=== PATIENT | female | born 1990 | race Caucasian/White ===

== ENCOUNTER 2025-02-15 15:13 | Inpatient (IN) ==
[2025-02-15 16:15] LABS: Hematocrit (blood only) 30.5 % (37.0-47.0); Hemoglobin 10.6 g/dl (12.0-16.0); Immature Granulocytes # (auto) 0.07 K/uL (0.01-0.20); Immature Granulocytes % (auto) 0.5 %; Mean Corpuscular Hemoglobin 29.2 pg (25.0-34.0); Mean Corpuscular Volume 84.0 fL (80.0-100.0); Platelet Count 288 K/uL (130-400); RDW Standard Deviation 41.5 fL (36.4-46.3); Red Blood Count 3.63 M/uL (4.20-5.40); White Blood Count 13.46 K/ul (4.8-10.8)
[2025-02-15 16:29] LABS: Alanine Aminotransferase 5.0 U/L (7-52); Albumin Globulin Ratio 1.1 (0.9-2); Alkaline Phosphatase 137.0 U/L (34-104); Anion Gap 9.0 (3-11); Bilirubin,Total 0.3 mg/dl (0.2-1.0); Blood Urea Nitrogen 5.0 mg/dl (6-23); Calcium 8.9 mg/dl (8.6-10.3); Carbon Dioxide 22.0 mmol/L (21-32); Chloride 105.0 mmol/L (98-107); Creatinine Clr Calc Pharmacy 135.6 ml/min; Globulin 3.0 gm/dl (2.5-4.0); Glucose 92.0 mg/dl (70-99(Fasting)); Potassium 2.8 mmol/L (3.5-5.1); Sodium 136.0 mmol/L (136-145); Total Protein 6.3 gm/dl (6.0-8.3)
[2025-02-15] MEDS ORDERED: OXYTOCIN 30 UNITS/NSS 30 UNITS/500 ML BAG IV PRN (16:34)
[2025-02-15] MEDS ORDERED: LIDOCAINE 1% LOCAL 20 ML VIAL INFIL PRN (16:34)
--- NOTE | 2025-02-15 16:45 | History & Physical Report ---
Date of Service February 15, 2025 Assessment & Plan (1) 36 weeks gestation of : (2) Preeclampsia: Plan PO Nifedipine 10mg for medical management of high blood pressures Start IV magnesium Insert valentine catheter Valentine bulb as indicated, otherwise Cytotec administration as indicated Pitocin (hold if starting Cyotec) GBS status unknown - start IV Penicillin Arom when indicated Continue to monitor vitals Monitor tracing, category 1 History of Present Illness Chief Complaint: Elevated blood pressures Primary Care Provider: NO PCP 36 weeks confirmed via LMP. Here for elevated blood pressures. Complications with this include GDM (managed by diet) and gestational HTN. Has been attending OB appointments regularly. Currently taking Zoloft, but no other medications. Patient states she had mild throbbing headache around 10am this morning which was relieved with Tylenol. Denies leg swelling, changes in vision, RUQ pain, CP, palpitations, fevers/chills, wheezing, cough, SOB, urinary symptoms. Contractions: none. Fluid or Blood loss: none Movement: active Labs - Blood type: O+ - Antibody screen: unknown - H.6 (02/15/25) - Hct: 30.5 (02/15/25) - Wbc: 13.46 (02/15/25) - Plt: 288 (02/15/25) - Rubella: immune - VDRL/RPR: pending - Gonorrhea: negative - Chlamydia: negative - HIV: negative - HbSAg: negative - GBS: pending - 3 hr GTT [phone] - abnormal - Rh negative Allergies Allergy/AdvReac Type Severity Reaction Status Date / Time No Known Allergies Allergy Verified 02/15/25 16:18 Home Medications Medication Instructions Recorded Confirmed Type sertraline [Zoloft] 50 mg PO DAILY 01/29/25 02/15/25 History ferrous sulfate 325 mg (65 mg 325 mg PO DAILY 02/15/25 02/15/25 History iron) tablet (Iron (ferrous sulfate)) vits no.124-ferrous fum 1 tab PO DAILY 02/15/25 02/15/25 History 27 mg iron-folic acid 800 mcg tablet ( Vitamin) Patient History Medical History Human papilloma virus Varicella vaccination Bipolar disorder Surgical History S/P wisdom tooth extraction S/P loop electrosurgical excision procedure Family History Grandmother (Maternal) Breast cancer Grandmother (Paternal) Breast cancer Brain cancer Mother Bipolar disorder Skin cancer Osteoporosis Denies family history of Ovarian cancer Colorectal cancer Social History Smoking Status: Never smoker Do You Dip or Chew Tobacco: No; Hx Alcohol Use: No Hx Substance Use: No Preferred Language: Lao Communication Ability: Effective 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 Date GA wks Lbr Lgth wt Sex Type del Anes Place Del Prov ? Comment 02/26/24 Aborted-Spontaneous [employer] History Last menstrual period: Yes Menstrual reliability: definite Flow: normal Menstrual regularity: regular Monthly: Yes Age at menarche: 13 On control pills at conception: Yes Menstrual history comments: cycles 28-30 days Details: last pap 03/2024 Review of Systems All systems reviewed & are unremarkable except as noted in HPI & below Physical Exam Constitutional: WD/WN, vitals as above Respiratory: normal respiratory effort, lungs clear to auscultation Cardiovascular: RRR, no murmur, no edema no LE edema bilaterally, negative Diamond sign bilaterally Gastrointestinal (Abdomen): normal bowel sounds, soft, nontender, no hepatosplenomegaly +gravid Skin: no rashes, warm and dry Psychiatric: A+Ox3, euthymic affect Genitourinary: difficult, probably closed, 50%, very posterior Results & Data Vital Signs (Past 12 Hours) Vital Signs Temp Pulse Resp BP 02/15/25 16:15 88 02/15/25 16:15 168/108 H 02/15/25 15:58 94 H 02/15/25 15:58 159/105 H 02/15/25 15:56 36.9 C 20 02/15/25 15:38 103 H 144/98 H 02/15/25 15:32 102 H 163/99 H Laboratory Results OB Labs: Hgb 10.6 g/dl (12.0-16.0) L 02/12/25 Hct 31.6 % (37.0-47.0) L 02/12/25 MCV 86.1 fL (80.0-100.0) 02/12/25 Plt Count 304 K/uL (130-400) 02/12/25 OB Optional Labs: No Data to Display Labs Reviewed: Initial OB Labs 08/25/24 Blood Type & RH Antibody Screen HCT/HGB 40.3/13.6 Platelets 298 Hep C IgG 13yrs+ Old non reactive Pap Test Chlamydia not detected Gonorrhea not detected Rubella immune RPR non reactive Urine Culture/Screen >100,000 mixed timothy HBsAg non reactive HIV non reactive MCV 91.7 Ultrasound 24-28 Week OB Labs 01/03/25 HCT/HGB 34.1/11.3 Diabetes Screen (1hr) 3HR GTT (if screen abnormal) [id number] Antibody Screen Urine Culture/Screen Monitoring External Monitor HR: 140 Variability: moderate Accelerations: present Decelerations: absent Contractions: absent Category 1 tracing Supervising Physician Co-Signing Physician Notes Resident Physician Supervision Note: I interviewed and examined the patient. Discussed with Dr. Shearer and agree with findings and plan as documented in the note. Any exceptions or clarifications are listed here: Patient is a [id number] who presents from the office with an elevated blood pressure. no s/s of pet Patient has been treated as GHTN in her previous practice. She was a NOEL at 34 weeks. Today, blood pressure 154/112. Had a 164/112 at her initial visit with repeat of 132/94. Subsequent visit was 138/88. She has no symptoms. Had severe blood pressures here requiring nifedipine. Therefore, she fulfills criteria for pet with severe features of blood pressures. Her labs are all nor mal. Her exam is benign. She was started on Mag prophylaxis. Her cervix is very unfavorable and difficult to examine. I was unable to place a valentine and she actually tolerated exam fairly poorly. Therefore, will go with cytotec for cervical ripening. fetus reactive nst, category one. toco, rare. ultrasound confirms cephalic presentation. Anticipate . Explained the situation to patient and her partner who express understanding. Documented By: Kathie Torres MD, FACOG Resident Activity Tracking Resident Involvement: Resident Care Provided Care Provided: OB Delivery
[2025-02-15] MEDS: NIFEdipine 10 MG CAP PO STA (16:46)
[2025-02-15 16:54] LABS: Protein Creatinine Ratio Urine 0.5 (0-0.2); Total Protein Urine Random 25.1 mg/dl (0-11.9)
[2025-02-15] MEDS: MAGNESIUM SULFATE / WTR 40 GM/1,000 ML BAG IV SCH (16:54)
[2025-02-15] MEDS: MAG SULFATE 4GM BOLUS FROM BAG IV ONE (16:54)
[2025-02-15] MEDS: LACTATED RINGER'S 1,000 ML IV PRN (16:54)
[2025-02-15] MEDS: PENICILLIN GK 6 MU in DEXTROSE 5% 250 ML IV STA (17:15)
[2025-02-15] MEDS ORDERED: ACETAMINOPHEN 500 MG TAB PO ONE (18:43)
[2025-02-15] MEDS: ACETAMINOPHEN 500 MG TAB PO ONE (19:12)
[2025-02-15] MEDS: LABETALOL HCL IV 5 MG/ML 20ML IV STA ×2 (19:14→23:27)
--- NOTE | 2025-02-15 19:37 | Communication Note ---
Date of Service: February 15, 2025 Patient developed a CHADWICK and her pressures went up again. Was given 1000mg tylenol and was treated with labetolol. INitially did not look like it was effe ctive, but now looking better 140/80. Will continue to monitor closely.
[2025-02-15] MEDS: PENICILLIN GK 3 MU in DEXTROSE 5% 100 ML IV PRN (20:39)
[2025-02-16] MEDS: LABETALOL HCL IV 5 MG/ML 20ML IV ONE (01:25)
[2025-02-16] MEDS: LABETALOL HCL IV 5 MG/ML 20ML IV STA ×3 (01:28→18:31)
--- NOTE | 2025-02-16 02:18 | Labor Progress Brief Note ---
Date of Service February 16, 2025 Subjective Patient resting comfortably. stanley has resolved. Assessment & Plan (1) Preeclampsia: (2) 36 weeks gestation of : Plan Will place another cytotec. Still occasionally needing blood pressure treatment. fetus category one. Admission and Anticipated Discharge Date Admission Date: February 15, 2025 Physical Exam Physical Exam: cx--still a challenging exam--ft/50/-2/less post toco--mary jane efm--130s with mod variability, small accels, no decels Results & Data Vital Signs (Past 12 Hours) Vital Signs Temp Pulse Resp BP Pulse Ox O2 Del Method 02/16/25 02:13 83 100 02/16/25 02:08 81 100 02/16/25 02:03 78 98 02/16/25 01:58 92 H 99 02/16/25 01:53 73 97 02/16/25 01:52 74 109/69 02/16/25 01:48 74 96 02/16/25 01:47 76 114/73 02/16/25 01:44 75 107/66 02/16/25 01:43 76 98 02/16/25 01:38 78 96 02/16/25 01:33 84 100 02/16/25 01:28 81 100 02/16/25 01:23 85 100 02/16/25 01:18 87 176/108 H 99 02/16/25 01:13 83 99 02/16/25 01:08 83 99 02/16/25 01:03 82 98 02/16/25 01:02 79 150/105 H 02/16/25 00:58 79 99 02/16/25 00:53 88 99 02/16/25 00:48 81 99 02/16/25 00:47 81 148/98 H 02/16/25 00:45 18 02/16/25 00:43 83 98 02/16/25 00:38 81 97 02/16/25 00:33 80 99 02/16/25 00:32 78 144/91 H 02/16/25 00:28 82 98 02/16/25 00:23 80 97 02/16/25 00:18 81 141/91 H 02/16/25 00:18 81 141/91 H 02/16/25 00:18 81 99 02/16/25 00:17 79 141/91 H 02/16/25 00:13 83 98 02/16/25 00:11 18 02/16/25 00:08 79 97 02/16/25 00:03 80 99 02/15/25 23:59 81 02/15/25 23:59 152/97 H 02/15/25 23:58 96 02/15/25 23:58 81 02/15/25 23:54 80 02/15/25 23:54 130/81 02/15/25 23:53 95 02/15/25 23:53 84 02/15/25 23:49 94 02/15/25 23:49 87 02/15/25 23:49 130/84 02/15/25 23:48 96 02/15/25 23:48 82 02/15/25 23:44 80 02/15/25 23:44 142/89 H 02/15/25 23:43 97 02/15/25 23:43 86 02/15/25 23:39 78 02/15/25 23:39 138/86 02/15/25 23:38 97 02/15/25 23:38 81 02/15/25 23:34 80 02/15/25 23:34 143/87 H 02/15/25 23:33 98 02/15/25 23:33 82 02/15/25 23:28 98 02/15/25 23:28 85 02/15/25 23:25 88 02/15/25 23:25 167/102 H 02/15/25 23:23 99 02/15/25 23:23 90 02/15/25 23:21 86 02/15/25 23:21 173/99 H 02/15/25 23:18 99 02/15/25 23:18 83 02/15/25 23:13 98 02/15/25 23:13 85 02/15/25 23:08 99 02/15/25 23:08 92 H 02/15/25 23:06 85 02/15/25 23:06 151/92 H 02/15/25 23:03 98 02/15/25 23:03 95 H 02/15/25 22:58 98 02/15/25 22:58 88 02/15/25 22:53 99 02/15/25 22:53 87 02/15/25 22:52 82 02/15/25 22:52 159/92 H 02/15/25 22:48 100 02/15/25 22:48 80 02/15/25 22:45 18 02/15/25 22:45 18 02/15/25 22:45 36.7 C 18 02/15/25 22:43 100 02/15/25 22:43 90 02/15/25 22:38 100 02/15/25 22:38 88 02/15/25 22:35 84 02/15/25 22:35 153/96 H 02/15/25 22:33 100 02/15/25 22:33 89 02/15/25 22:28 100 02/15/25 22:28 84 02/15/25 22:23 99 02/15/25 22:23 92 H 02/15/25 22:20 86 02/15/25 22:20 145/93 H 02/15/25 22:18 98 02/15/25 22:18 88 02/15/25 22:13 99 02/15/25 22:13 85 02/15/25 22:08 100 02/15/25 22:08 94 H 02/15/25 22:05 86 02/15/25 22:05 147/95 H 02/15/25 22:03 98 02/15/25 22:03 89 02/15/25 22:00 18 02/15/25 22:00 18 02/15/25 21:58 100 02/15/25 21:58 91 H 02/15/25 21:53 100 02/15/25 21:53 95 H 02/15/25 21:51 90 02/15/25 21:51 146/87 H 02/15/25 21:48 98 02/15/25 21:48 88 02/15/25 21:43 98 02/15/25 21:43 92 H 02/15/25 21:38 100 02/15/25 21:38 87 02/15/25 21:36 88 02/15/25 21:36 153/91 H 02/15/25 21:33 99 02/15/25 21:33 92 H 02/15/25 21:28 99 02/15/25 21:28 90 02/15/25 21:23 99 02/15/25 21:23 87 02/15/25 21:20 85 02/15/25 21:20 134/87 02/15/25 21:18 98 02/15/25 21:18 88 02/15/25 21:13 97 02/15/25 21:13 85 02/15/25 21:08 98 02/15/25 21:08 87 02/15/25 21:06 85 02/15/25 21:06 144/88 H 02/15/25 21:03 97 02/15/25 21:03 85 02/15/25 20:58 98 02/15/25 20:58 88 02/15/25 20:53 97 02/15/25 20:53 90 02/15/25 20:50 89 02/15/25 20:50 135/84 02/15/25 20:48 99 02/15/25 20:48 86 02/15/25 20:45 18 02/15/25 20:45 36.8 C 18 02/15/25 20:43 100 02/15/25 20:43 83 02/15/25 20:38 97 02/15/25 20:38 87 02/15/25 20:36 91 H 02/15/25 20:36 136/80 02/15/25 20:33 98 02/15/25 20:33 85 02/15/25 20:28 98 02/15/25 20:28 89 02/15/25 20:23 99 02/15/25 20:23 97 H 02/15/25 20:21 88 02/15/25 20:21 130/69 02/15/25 20:18 99 02/15/25 20:18 92 H 02/15/25 20:13 98 02/15/25 20:13 95 H 02/15/25 20:08 98 02/15/25 20:08 85 02/15/25 20:06 87 02/15/25 20:06 140/89 02/15/25 20:03 99 02/15/25 20:03 85 02/15/25 20:00 18 02/15/25 20:00 18 02/15/25 19:58 98 02/15/25 19:58 84 02/15/25 19:53 100 02/15/25 19:53 90 02/15/25 19:48 100 02/15/25 19:48 93 H 02/15/25 19:48 93 H 02/15/25 19:48 145/101 H 02/15/25 19:44 88 02/15/25 19:44 154/103 H 02/15/25 19:43 100 02/15/25 19:43 89 02/15/25 19:38 99 02/15/25 19:38 92 H 02/15/25 19:38 152/89 H 02/15/25 19:33 98 02/15/25 19:33 95 H 02/15/25 19:33 145/81 H 02/15/25 19:29 93 H 02/15/25 19:29 131/75 02/15/25 19:28 100 02/15/25 19:28 94 H 02/15/25 19:23 100 02/15/25 19:23 89 02/15/25 19:23 166/107 H 02/15/25 19:20 86 02/15/25 19:20 154/99 H 02/15/25 19:18 100 02/15/25 19:18 93 H 02/15/25 19:15 Room Air 02/15/25 19:15 18 02/15/25 19:15 36.7 C 18 02/15/25 19:13 100 02/15/25 19:13 100 H 02/15/25 19:08 100 02/15/25 19:08 97 H 02/15/25 19:03 100 02/15/25 19:03 94 H 02/15/25 18:59 93 H 02/15/25 18:59 181/109 H 02/15/25 18:58 100 02/15/25 18:58 91 H 02/15/25 18:53 100 02/15/25 18:53 99 H 02/15/25 18:48 100 02/15/25 18:48 97 H 02/15/25 18:43 100 02/15/25 18:43 102 H 02/15/25 18:43 98 H 02/15/25 18:43 157/106 H 02/15/25 18:38 100 02/15/25 18:38 104 H 02/15/25 18:33 100 02/15/25 18:33 97 H 02/15/25 18:28 100 02/15/25 18:28 109 H 02/15/25 18:28 158/110 H 02/15/25 18:23 99 02/15/25 18:23 107 H 02/15/25 18:18 100 02/15/25 18:18 107 H 02/15/25 18:13 100 02/15/25 18:13 107 H 02/15/25 18:13 151/85 H 02/15/25 18:08 98 02/15/25 18:08 101 H 02/15/25 18:03 99 02/15/25 18:03 103 H 02/15/25 18:00 20 02/15/25 17:58 98 02/15/25 17:58 97 H 02/15/25 17:58 153/92 H 02/15/25 17:53 98 02/15/25 17:53 104 H 02/15/25 17:48 99 02/15/25 17:48 105 H 02/15/25 17:43 109 H 02/15/25 17:43 152/90 H 02/15/25 17:28 126 H 02/15/25 17:28 144/82 H 02/15/25 17:15 115 H 02/15/25 17:15 118/63 02/15/25 16:59 115 H 02/15/25 16:59 174/106 H 02/15/25 16:54 20 02/15/25 16:44 95 H 02/15/25 16:44 187/110 H 02/15/25 16:15 88 02/15/25 16:15 168/108 H 02/15/25 15:58 94 H 02/15/25 15:58 159/105 H 02/15/25 15:56 36.9 C 20 02/15/25 15:38 103 H 144/98 H 02/15/25 15:32 102 H 163/99 H Coding Level of Care Code None Diagnoses Preeclampsia O14.90 36 weeks gestation of Z3A.36
[2025-02-16] MEDS: ACETAMINOPHEN 500 MG TAB PO ONE (06:24)
[2025-02-16] MEDS: ONDANSETRON INJ 2 MG/ML 2 ML VIAL IV ONE ×2 (06:26→19:33)
--- NOTE | 2025-02-16 06:58 | Labor Progress Brief Note ---
Date of Service February 16, 2025 Subjective Patient has been resting overnight. She notes stanley this am and got tylenol and has helped. no other s/s of pet. Blood pressures have been reasonable since 40mg dose. uop was excellent overnight. Assessment & Plan (1) Preeclampsia: (2) 36 weeks gestation of : Plan continue current management. at this point will start pitocin, epidural on demand. Fetus category 2 at times because of variability with mag. Discussed plan with the patient. Admission and Anticipated Discharge Date Admission Date: February 15, 2025 Physical Exam Constitutional: WD/WN, vitals as above Gastrointestinal (Abdomen): soft, gravid, nt, no ruq pain Psychiatric: A+Ox3, euthymic affect Genitourinary: attempt again at valentine without success. cx still difficult but probably /soft/post toco--mary jane efm--120s with min to mod variability, mag effect at this point. Results & Data Vital Signs (Past 12 Hours) Vital Signs Temp Pulse Resp BP Pulse Ox O2 Del Method 02/16/25 06:53 91 H 100 02/16/25 06:48 99 H 100 02/16/25 06:43 87 97 02/16/25 06:38 98 02/16/25 06:38 85 02/16/25 06:38 85 130/88 02/16/25 06:33 84 97 02/16/25 06:28 86 100 02/16/25 06:23 85 99 02/16/25 06:22 85 137/80 02/16/25 06:18 91 H 98 02/16/25 06:13 94 H 100 02/16/25 06:08 90 100 02/16/25 06:07 86 143/79 H 02/16/25 06:03 83 99 02/16/25 05:58 87 98 02/16/25 05:53 84 100 02/16/25 05:52 82 142/95 H 02/16/25 05:48 84 98 02/16/25 05:43 86 100 02/16/25 05:38 82 99 02/16/25 05:37 85 148/98 H 02/16/25 05:33 81 98 02/16/25 05:28 85 98 02/16/25 05:23 84 145/85 H 100 02/16/25 05:18 82 100 02/16/25 05:13 82 100 02/16/25 05:08 81 99 02/16/25 05:07 81 152/94 H 02/16/25 05:03 80 100 02/16/25 05:00 18 02/16/25 05:00 18 02/16/25 05:00 36.8 C 18 02/16/25 04:58 80 98 02/16/25 04:53 81 100 02/16/25 04:52 81 146/94 H 02/16/25 04:48 81 98 02/16/25 04:43 77 100 02/16/25 04:40 87 94 02/16/25 04:38 77 97 02/16/25 04:37 78 139/88 02/16/25 04:33 79 96 02/16/25 04:28 82 96 02/16/25 04:23 77 156/87 H 98 02/16/25 04:18 80 99 02/16/25 04:13 79 98 02/16/25 04:08 80 161/89 H 98 02/16/25 04:03 82 100 02/16/25 03:58 85 99 02/16/25 03:53 99 02/16/25 03:53 80 02/16/25 03:53 79 145/86 H 02/16/25 03:49 75 155/93 H 02/16/25 03:48 79 98 02/16/25 03:43 75 96 02/16/25 03:38 83 155/93 H 98 02/16/25 03:33 79 100 02/16/25 03:28 79 96 02/16/25 03:23 78 142/82 H 98 02/16/25 03:18 78 97 02/16/25 03:13 78 97 02/16/25 03:08 78 98 02/16/25 03:07 83 129/83 02/16/25 03:03 78 98 02/16/25 02:58 76 98 02/16/25 02:53 79 99 08 02:52 76 138/84 02/16/25 02:48 82 99 02/16/25 02:43 84 99 02/16/25 02:38 78 99 02/16/25 02:37 76 129/82 02/16/25 02:33 80 99 02/16/25 02:30 18 02/16/25 02:30 18 02/16/25 02:30 36.7 C 18 02/16/25 02:28 87 99 02/16/25 02:25 81 135/82 02/16/25 02:23 81 100 02/16/25 02:18 80 100 02/16/25 02:13 83 100 02/16/25 02:08 81 100 02/16/25 02:03 78 98 02/16/25 01:58 92 H 99 02/16/25 01:53 73 97 02/16/25 01:52 74 109/69 02/16/25 01:48 74 96 02/16/25 01:47 76 114/73 02/16/25 01:45 18 02/16/25 01:45 18 02/16/25 01:44 75 107/66 02/16/25 01:43 76 98 02/16/25 01:38 78 96 02/16/25 01:33 84 100 02/16/25 01:28 81 100 02/16/25 01:23 85 100 02/16/25 01:18 87 176/108 H 99 02/16/25 01:13 83 99 02/16/25 01:08 83 99 02/16/25 01:03 82 98 02/16/25 01:02 79 150/105 H 02/16/25 00:58 79 99 02/16/25 00:53 88 99 02/16/25 00:48 81 99 02/16/25 00:47 81 148/98 H 02/16/25 00:45 18 02/16/25 00:43 83 98 02/16/25 00:38 81 97 02/16/25 00:33 80 99 02/16/25 00:32 78 144/91 H 02/16/25 00:28 82 98 02/16/25 00:23 80 97 02/16/25 00:18 81 141/91 H 02/16/25 00:18 81 141/91 H 02/16/25 00:18 81 99 02/16/25 00:17 79 141/91 H 02/16/25 00:13 83 98 02/16/25 00:11 18 02/16/25 00:08 79 97 02/16/25 00:03 80 99 02/15/25 23:59 81 02/15/25 23:59 152/97 H 02/15/25 23:58 96 02/15/25 23:58 81 02/15/25 23:54 80 02/15/25 23:54 130/81 02/15/25 23:53 95 02/15/25 23:53 84 02/15/25 23:49 94 02/15/25 23:49 87 02/15/25 23:49 130/84 02/15/25 23:48 96 02/15/25 23:48 82 02/15/25 23:44 80 02/15/25 23:44 142/89 H 02/15/25 23:43 97 02/15/25 23:43 86 02/15/25 23:39 78 02/15/25 23:39 138/86 02/15/25 23:38 97 02/15/25 23:38 81 02/15/25 23:34 80 02/15/25 23:34 143/87 H 02/15/25 23:33 98 02/15/25 23:33 82 02/15/25 23:28 98 02/15/25 23:28 85 02/15/25 23:25 88 02/15/25 23:25 167/102 H 02/15/25 23:23 99 02/15/25 23:23 90 02/15/25 23:21 86 02/15/25 23:21 173/99 H 02/15/25 23:18 99 02/15/25 23:18 83 02/15/25 23:13 98 02/15/25 23:13 85 02/15/25 23:08 99 02/15/25 23:08 92 H 02/15/25 23:06 85 02/15/25 23:06 151/92 H 02/15/25 23:03 98 02/15/25 23:03 95 H 02/15/25 22:58 98 02/15/25 22:58 88 02/15/25 22:53 99 02/15/25 22:53 87 02/15/25 22:52 82 02/15/25 22:52 159/92 H 02/15/25 22:48 100 02/15/25 22:48 80 02/15/25 22:45 18 02/15/25 22:45 18 02/15/25 22:45 36.7 C 18 02/15/25 22:43 100 02/15/25 22:43 90 02/15/25 22:38 100 02/15/25 22:38 88 02/15/25 22:35 84 02/15/25 22:35 153/96 H 02/15/25 22:33 100 02/15/25 22:33 89 02/15/25 22:28 100 02/15/25 22:28 84 02/15/25 22:23 99 02/15/25 22:23 92 H 02/15/25 22:20 86 02/15/25 22:20 145/93 H 02/15/25 22:18 98 02/15/25 22:18 88 02/15/25 22:13 99 02/15/25 22:13 85 02/15/25 22:08 100 02/15/25 22:08 94 H 02/15/25 22:05 86 02/15/25 22:05 147/95 H 02/15/25 22:03 98 02/15/25 22:03 89 02/15/25 22:00 18 02/15/25 22:00 18 02/15/25 21:58 100 02/15/25 21:58 91 H 02/15/25 21:53 100 02/15/25 21:53 95 H 02/15/25 21:51 90 02/15/25 21:51 146/87 H 02/15/25 21:48 98 02/15/25 21:48 88 02/15/25 21:43 98 02/15/25 21:43 92 H 02/15/25 21:38 100 02/15/25 21:38 87 02/15/25 21:36 88 02/15/25 21:36 153/91 H 02/15/25 21:33 99 02/15/25 21:33 92 H 02/15/25 21:28 99 02/15/25 21:28 90 02/15/25 21:23 99 02/15/25 21:23 87 02/15/25 21:20 85 02/15/25 21:20 134/87 02/15/25 21:18 98 02/15/25 21:18 88 02/15/25 21:13 97 02/15/25 21:13 85 02/15/25 21:08 98 02/15/25 21:08 87 02/15/25 21:06 85 02/15/25 21:06 144/88 H 02/15/25 21:03 97 02/15/25 21:03 85 02/15/25 20:58 98 02/15/25 20:58 88 02/15/25 20:53 97 02/15/25 20:53 90 02/15/25 20:50 89 02/15/25 20:50 135/84 02/15/25 20:48 99 02/15/25 20:48 86 02/15/25 20:45 18 02/15/25 20:45 36.8 C 18 02/15/25 20:43 100 02/15/25 20:43 83 02/15/25 20:38 97 02/15/25 20:38 87 02/15/25 20:36 91 H 02/15/25 20:36 136/80 02/15/25 20:33 98 02/15/25 20:33 85 02/15/25 20:28 98 02/15/25 20:28 89 02/15/25 20:23 99 02/15/25 20:23 97 H 02/15/25 20:21 88 02/15/25 20:21 130/69 02/15/25 20:18 99 02/15/25 20:18 92 H 02/15/25 20:13 98 02/15/25 20:13 95 H 02/15/25 20:08 98 02/15/25 20:08 85 02/15/25 20:06 87 02/15/25 20:06 140/89 02/15/25 20:03 99 02/15/25 20:03 85 02/15/25 20:00 18 02/15/25 20:00 18 02/15/25 19:58 98 02/15/25 19:58 84 02/15/25 19:53 100 02/15/25 19:53 90 02/15/25 19:48 100 02/15/25 19:48 93 H 02/15/25 19:48 93 H 02/15/25 19:48 145/101 H 02/15/25 19:44 88 02/15/25 19:44 154/103 H 02/15/25 19:43 100 02/15/25 19:43 89 02/15/25 19:38 99 02/15/25 19:38 92 H 02/15/25 19:38 152/89 H 02/15/25 19:33 98 02/15/25 19:33 95 H 02/15/25 19:33 145/81 H 02/15/25 19:29 93 H 02/15/25 19:29 131/75 02/15/25 19:28 100 02/15/25 19:28 94 H 02/15/25 19:23 100 02/15/25 19:23 89 02/15/25 19:23 166/107 H 02/15/25 19:20 86 02/15/25 19:20 154/99 H 02/15/25 19:18 100 02/15/25 19:18 93 H 02/15/25 19:15 Room Air 02/15/25 19:15 18 02/15/25 19:15 36.7 C 18 02/15/25 19:13 100 02/15/25 19:13 100 H 02/15/25 19:08 100 02/15/25 19:08 97 H 02/15/25 19:03 100 02/15/25 19:03 94 H 02/15/25 18:59 93 H 02/15/25 18:59 181/109 H 02/15/25 18:58 100 02/15/25 18:58 91 H Coding Level of Care Code None Diagnoses Preeclampsia O14.90 36 weeks gestation of Z3A.36
[2025-02-16] MEDS: OXYTOCIN 30 UNITS/NSS 30 UNITS/500 ML BAG IV PRN (08:00)
[2025-02-16] MEDS ORDERED: LIDOCAINE 2% MPF LOCAL 5 ML VIAL EPI PRN (12:21)
[2025-02-16] MEDS ORDERED: SODIUM CHLORIDE 0.9% PF INJ 10 ML VIAL EPI PRN (12:21)
[2025-02-16] MEDS ORDERED: BUPIVACAINE 0.25% PF 30 ML VIAL EPI PRN (12:21)
[2025-02-16] MEDS ORDERED: NALBUPHINE HCL INJ 10 MG/ML AMP IV PRN (12:21)
[2025-02-16] MEDS ORDERED: NALOXONE HCL 1 MG in SODIUM CHLORIDE 0.9% 1,000 ML IV PRN (12:21)
[2025-02-16] MEDS ORDERED: diphenhydrAMINE 50 MG/ML VIAL IV PRN (12:21)
[2025-02-16] MEDS ORDERED: NALOXONE HCL 0.4 MG/1 ML VIAL/CARP IV PRN (12:21)
[2025-02-16] MEDS ORDERED: ROPIVACAINE 0.5% PF 5 MG/ML 20 ML VIAL EPI PRN (12:21)
--- NOTE | 2025-02-16 12:21 | Anesthesiology Consultation ---
Date of Service February 16, 2025 Assessment & Plan Chart Review Chart Review: Acceptable Risk for Labor Epidural Consults Requested none History Height/Weight Height: 5 ft 4 in Weight: 81.647 kg Allergies Allergy/AdvReac Type Severity Reaction Status Date / Time No Known Allergies Allergy Verified 02/15/25 16:18 Medications Home Medications Medication Instructions Recorded Confirmed Last Taken sertraline [Zoloft] 50 mg PO DAILY 01/29/25 02/15/25 02/15/25 08:00 ferrous sulfate 325 mg (65 mg 325 mg PO DAILY 02/15/25 02/15/25 Unknown iron) tablet (Iron (ferrous sulfate)) vits no.124-ferrous fum 1 tab PO DAILY 02/15/25 02/15/25 02/14/25 20:00 27 mg iron-folic acid 800 mcg tablet ( Vitamin) Active Medications Generic Name Dose Route Start Last Admin Trade Name Freq PRN Reason Stop Dose Admin Lactated Ringer's 1,000 mls @ 125 mls/hr 02/15/25 16:34 02/16/25 12:06 Lr IV 02/17/25 16:33 999 mls/hr .Q8H PRN Infusion L&D Protocol Protocol Penicillin G Potassium 3 mu/ 106 mls @ 100 mls/hr 02/15/25 19:34 02/16/25 09:20 Dextrose IV 02/25/25 19:33 100 mls/hr Q4H PRN Administration GBS(+) Until Delivery Oxytocin 30 units in 500 mls @ 0 mls/hr 02/15/25 16:34 02/16/25 12:05 Pitocin 30 Units/Nss IV 02/17/25 16:33 0 units/hr .Q0M PRN 0 mls/hr Labor Induction/Augmentation Titration Protocol 0 UNITS/HR Magnesium Sulfate 40 gm in 1,000 mls @ 50 mls/hr 02/15/25 16:45 02/16/25 09:59 Magnesium Sulfate / Wtr IV 03/17/25 16:44 50 mls/hr .Q20H JEFFY Infusion Past Medical History Medical History Human papilloma virus Varicella vaccination Bipolar disorder Past Family History Family History Grandmother (Maternal) Breast cancer Grandmother (Paternal) Breast cancer Brain cancer Mother Bipolar disorder Skin cancer Osteoporosis Denies family history of Ovarian cancer Colorectal cancer Past Surgical History Surgical History S/P wisdom tooth extraction S/P loop electrosurgical excision procedure Social History Smoking Status: Never smoker Do You Dip or Chew Tobacco: No Hx Alcohol Use: No Hx Substance Use: No Physical Exam Vital Signs Last Vital Signs Temp 37.0 C 02/16/25 11:16 Pulse 83 02/16/25 12:18 Resp 18 02/16/25 11:16 BP 170/93 H 02/16/25 12:15 Pulse Ox 100 02/16/25 12:18 O2 Del Method Room Air 02/16/25 07:10 Testing Laboratory Results 02/15/25 15:46 02/15/25 15:46 Blood Type O Positive 02/15/25 15:57 02/16/25 00:48 POC Glucose 92
[2025-02-16 13:05] LABS: Hematocrit (blood only) 32.2 % (37.0-47.0); Hemoglobin 11.1 g/dl (12.0-16.0); Mean Corpuscular Hemoglobin 29.4 pg (25.0-34.0); Mean Corpuscular Volume 85.2 fL (80.0-100.0); Platelet Count 296 K/uL (130-400); RDW Standard Deviation 42.1 fL (36.4-46.3); Red Blood Count 3.78 M/uL (4.20-5.40); White Blood Count 17.36 K/ul (4.8-10.8)
[2025-02-16] MEDS: fentANYL 2 MCG/ML BUPIVacaine 0.125%-NSS 100ML BAG ONE (13:30)
[2025-02-16] MEDS: BUPIVACAINE 0.25% PF 30 ML VIAL ONE (13:37)
[2025-02-16] MEDS: SODIUM CHLORIDE 0.9% PF INJ 10 ML VIAL ONE (13:38)
[2025-02-16] MEDS: LIDOCAINE 2%/EPINEPHRINE 1:200,000 20 ML PF ONE (13:38)
[2025-02-16] MEDS: SODIUM CHLORIDE 0.9% PF INJ 10 ML VIAL EPI STA (13:39)
[2025-02-16] MEDS: BUPIVACAINE 0.25% PF 30 ML VIAL EPI STA (13:39)
[2025-02-16] MEDS: LIDOCAINE 2%/EPINEPHRINE 1:200,000 20 ML PF EPI STA (13:39)
[2025-02-16] MEDS ORDERED: PHENYLEPHRINE 100MCG/ML 5ML SYR ONE (14:15)
[2025-02-16] MEDS ORDERED: PHENYLEPHRINE HCL 25 MG/250 ML NSS IV ONE (14:16)
--- NOTE | 2025-02-16 15:18 | Labor Progress Brief Note ---
Date of Service February 16, 2025 Subjective Comfortable with epidural. Of note, as soon as epidural took effect, BP dropped to low-normal. Has now stabilized with management via Dr. Carrion, 114/66, P85, asymptomatic. Assessment & Plan Admission and Anticipated Discharge Date Admission Date: February 15, 2025 Physical Exam Genitourinary: Rogel catheter in bladder since last night. Slight hematuria noted in tubing, has been present since placement per RN. Patient verbally re-consented for Rogel placement and was agreeable. Cervix 2cm when attempt to place cervical Rogel balloon began. Rogel placed above iOs, then insufflated, but promptly extruded back through the cervix which was then 3cm. A second attempt was made to place balloon, but as soon as the balloon was seated downwards against the cervix it passed easily through again. Exam afterwards was 475/-2, and SROM occurred for clear fluid at that time. FHT Cat 1 [place] Q2-3 Results & Data Vital Signs (Past 12 Hours) Vital Signs Temp Pulse Resp BP Pulse Ox O2 Del Method 02/16/25 15:08 85 98 02/16/25 15:03 83 98 02/16/25 15:02 82 114/66 02/16/25 14:58 82 96 02/16/25 14:57 81 115/66 02/16/25 14:53 73 96 02/16/25 14:52 76 119/66 02/16/25 14:51 72 93 02/16/25 14:48 73 96 02/16/25 14:47 75 108/64 02/16/25 14:43 94 02/16/25 14:43 76 02/16/25 14:43 85 93 02/16/25 14:42 80 103/56 L 02/16/25 14:38 78 95 02/16/25 14:36 16 02/16/25 14:36 97.9 F 16 02/16/25 14:36 70 02/16/25 14:36 71 106/59 L 93 02/16/25 14:33 76 89/51 L 97 02/16/25 14:28 75 96 02/16/25 14:27 78 108/64 02/16/25 14:23 79 95 02/16/25 14:22 80 102/61 02/16/25 14:18 83 96 02/16/25 14:16 76 93 02/16/25 14:15 77 106/61 02/16/25 14:14 71 106/55 L 02/16/25 14:13 74 97 02/16/25 14:12 75 111/60 02/16/25 14:11 78 94 02/16/25 14:09 73 89/50 L 02/16/25 14:08 77 95 02/16/25 14:07 77 100/57 L 02/16/25 14:05 79 02/16/25 14:05 81 104/59 L 94 02/16/25 14:03 81 97/57 L 97 02/16/25 14:01 80 108/65 02/16/25 14:00 18 02/16/25 14:00 83 127/71 02/16/25 13:58 64 97 02/16/25 13:55 76 87/55 L 02/16/25 13:53 79 89/50 L 98 02/16/25 13:51 78 91/55 L 02/16/25 13:49 75 93/57 L 02/16/25 13:48 79 98 02/16/25 13:47 76 89/53 L 02/16/25 13:45 75 94/57 L 02/16/25 13:43 97 02/16/25 13:43 72 02/16/25 13:43 76 101/58 L 02/16/25 13:41 72 75/45 L 02/16/25 13:40 78 79/50 L 02/16/25 13:39 72 02/16/25 13:39 76 77/46 L 94 02/16/25 13:38 95 02/16/25 13:38 74 02/16/25 13:38 75 77/46 L 02/16/25 13:36 78 100/63 02/16/25 13:33 76 103/65 97 02/16/25 13:31 77 108/65 02/16/25 13:30 79 111/73 02/16/25 13:28 80 100 02/16/25 13:23 77 100 02/16/25 13:18 92 H 100 02/16/25 13:15 93 H 155/98 H 02/16/25 13:13 94 H 100 02/16/25 13:08 83 96 02/16/25 13:07 86 149/94 H 02/16/25 13:04 83 94 02/16/25 13:03 85 99 02/16/25 13:00 18 02/16/25 12:58 96 02/16/25 12:58 84 02/16/25 12:58 83 94 02/16/25 12:53 81 97 02/16/25 12:51 85 94 02/16/25 12:48 85 96 02/16/25 12:47 81 166/101 H 02/16/25 12:43 85 99 02/16/25 12:38 82 100 02/16/25 12:33 86 100 02/16/25 12:28 79 100 02/16/25 12:24 88 91 02/16/25 12:23 88 100 02/16/25 12:18 83 100 02/16/25 12:15 86 18 170/93 H 02/16/25 12:13 86 100 02/16/25 12:08 85 100 02/16/25 12:03 82 100 02/16/25 12:00 20 02/16/25 11:58 93 H 100 02/16/25 11:56 78 94 02/16/25 11:53 79 95 02/16/25 11:51 83 94 02/16/25 11:48 78 95 02/16/25 11:46 77 02/16/25 11:46 78 120/70 94 02/16/25 11:43 80 95 02/16/25 11:38 79 95 02/16/25 11:33 83 99 02/16/25 11:30 84 94 02/16/25 11:28 80 97 02/16/25 11:23 76 96 02/16/25 11:21 79 94 02/16/25 11:18 77 96 02/16/25 11:16 98.6 F 75 18 140/83 02/16/25 11:13 82 97 02/16/25 11:08 79 98 02/16/25 11:07 79 123/76 02/16/25 11:03 85 96 02/16/25 11:00 18 02/16/25 10:59 18 02/16/25 10:59 18 02/16/25 10:58 83 97 02/16/25 10:53 85 96 02/16/25 10:51 84 94 02/16/25 10:48 80 97 02/16/25 10:44 76 02/16/25 10:44 79 123/76 94 02/16/25 10:43 80 96 02/16/25 10:38 85 99 02/16/25 10:37 83 164/95 H 02/16/25 10:33 86 99 02/16/25 10:28 83 97 02/16/25 10:26 86 94 02/16/25 10:23 85 96 02/16/25 10:18 83 98 02/16/25 10:16 82 164/95 H 02/16/25 10:13 84 97 02/16/25 10:08 18 02/16/25 10:08 82 99 02/16/25 10:03 90 98 02/16/25 09:59 18 02/16/25 09:59 18 02/16/25 09:58 82 99 02/16/25 09:56 84 159/84 H 02/16/25 09:53 89 100 02/16/25 09:48 98 H 98 02/16/25 09:43 89 100 02/16/25 09:38 87 98 02/16/25 09:33 88 98 02/16/25 09:28 84 99 02/16/25 09:23 86 100 02/16/25 09:18 84 93 02/16/25 09:15 84 124/71 02/16/25 09:13 80 96 02/16/25 09:08 81 95 02/16/25 09:03 81 96 02/16/25 09:00 16 02/16/25 09:00 16 02/16/25 08:58 88 99 02/16/25 08:53 87 96 02/16/25 08:48 83 98 02/16/25 08:45 83 134/84 02/16/25 08:43 86 99 02/16/25 08:40 88 93 02/16/25 08:38 85 96 02/16/25 08:33 81 98 02/16/25 08:28 80 96 02/16/25 08:23 96 02/16/25 08:23 81 08 08:23 81 94 02/16/25 08:18 82 97 02/16/25 08:15 76 158/86 H 02/16/25 08:13 84 96 02/16/25 08:08 86 100 02/16/25 08:03 83 99 02/16/25 08:00 76 20 146/86 H 02/16/25 07:58 86 99 02/16/25 07:53 79 99 02/16/25 07:48 85 97 02/16/25 07:46 84 166/95 H 02/16/25 07:43 84 99 02/16/25 07:38 82 98 02/16/25 07:33 81 96 02/16/25 07:28 85 100 02/16/25 07:23 89 100 02/16/25 07:18 85 100 02/16/25 07:14 84 140/88 02/16/25 07:13 94 H 99 02/16/25 07:10 20 02/16/25 07:10 Room Air 02/16/25 07:08 85 100 02/16/25 07:03 98.4 F 93 H 20 98 02/16/25 06:58 88 97 02/16/25 06:53 91 H 100 02/16/25 06:48 99 H 100 02/16/25 06:43 87 97 02/16/25 06:38 98 02/16/25 06:38 85 02/16/25 06:38 85 130/88 02/16/25 06:33 84 97 02/16/25 06:28 86 100 02/16/25 06:23 85 99 02/16/25 06:22 85 137/80 02/16/25 06:18 91 H 98 02/16/25 06:13 94 H 100 02/16/25 06:08 90 100 02/16/25 06:07 86 143/79 H 02/16/25 06:03 83 99 02/16/25 05:58 87 98 02/16/25 05:53 84 100 02/16/25 05:52 82 142/95 H 02/16/25 05:48 84 98 02/16/25 05:43 86 100 02/16/25 05:38 82 99 02/16/25 05:37 85 148/98 H 02/16/25 05:33 81 98 02/16/25 05:28 85 98 02/16/25 05:23 84 145/85 H 100 02/16/25 05:18 82 100 02/16/25 05:13 82 100 08/26/25 05:08 81 99 02/16/25 05:07 81 152/94 H 02/16/25 05:03 80 100 02/16/25 05:00 18 02/16/25 05:00 18 02/16/25 05:00 98.2 F 18 02/16/25 04:58 80 98 02/16/25 04:53 81 100 02/16/25 04:52 81 146/94 H 02/16/25 04:48 81 98 02/16/25 04:43 77 100 02/16/25 04:40 87 94 02/16/25 04:38 77 97 02/16/25 04:37 78 139/88 02/16/25 04:33 79 96 02/16/25 04:28 82 96 02/16/25 04:23 77 156/87 H 98 02/16/25 04:18 80 99 02/16/25 04:13 79 98 02/16/25 04:08 80 161/89 H 98 02/16/25 04:03 82 100 02/16/25 03:58 85 99 02/16/25 03:53 99 02/16/25 03:53 80 02/16/25 03:53 79 145/86 H 02/16/25 03:49 75 155/93 H 02/16/25 03:48 79 98 02/16/25 03:43 75 96 02/16/25 03:38 83 155/93 H 98 02/16/25 03:33 79 100 02/16/25 03:28 79 96 02/16/25 03:23 78 142/82 H 98 02/16/25 03:18 78 97 Coding Level of Care Code None
--- NOTE | 2025-02-16 15:24 | Communication Note ---
Date of Service: February 16, 2025 called to bedside d/t hypotension subsequent to epidural infusion initiation. pt mildly symptomatic. treated with phenylephrine 100 mcg bolus x4/ephedrine per nursing and IVF. started phenylephrine gtt under my management from 1422- 1455 at 0.2 mcg/kg/min while fluid resuscitation continued. phenylephrine d/c'd and BP remained stable. will continue to monitor.
[2025-02-16] MEDS: ONDANSETRON INJ 2 MG/ML 2 ML VIAL ONE (19:38)
[2025-02-16] MEDS: fentANYL 2 MCG/ML BUPIVacaine 0.125%-NSS 100ML BAG EPI PRN (20:20)
[2025-02-16] MEDS ORDERED: LIDOCAINE 2%/EPINEPHRINE 1:200,000 20 ML PF ONE (21:08)
[2025-02-16] MEDS ORDERED: fentANYL 2 MCG/ML BUPIVacaine 0.125%-NSS 100ML BAG EPI PRN (21:25)
--- NOTE | 2025-02-16 21:25 | Anesthesia Procedure Note ---
Date of Service February 16, 2025 Anesthesia Epidural Re-Dose Vital Signs Temp Pulse Resp BP Pulse Ox O2 Del Method 36.7 C 91 H 18 148/88 H 100 Room Air 02/16/25 19:30 02/16/25 21:21 02/16/25 19:30 02/16/25 21:21 02/16/25 21:19 02/16/25 19:21 Notes Pain Intensity: 7 Dilatation (cm): 5.0 Effacement (%): 75 Called by nursing to evaluate epidural as the patient is having increased pain. The epidural was re-dosed with the following medications (all medications via epidural route) after negative aspiration of the epidural catheter for CSF/HEME. 5cc 2% Lidocaine with epi via epidural After Epidural Re-Dose Mental Status: alert / awake / arousable and participated in evaluation Pain: improving with treatment Airway Patency, RR, SpO2: stable & adequate BP & HR: stable & adequate
--- NOTE | 2025-02-17 01:16 | Delivery Summary ---
Vaginal Delivery Summary Date of Service February 17, 2025 Vaginal Delivery Summary DIAGNOSES: 1. [place] intrauterine at 36w2d gestation. 2. Induction of Labor due to Preeclampsia with Severe Features. 3. Group B Streptococcus Neg. PROCEDURE: Spontaneous vaginal delivery and repair of second degree laceration. SURGEON: Mindy Lei MD. OFFICE CLEANER: None. ESTIMATED BLOOD LOSS: 358 mL. COMPLICATIONS: None. PLACENTA: Spontaneous and intact with a 3-vessel cord. DISPOSITION: Stable to labor and delivery. DESCRIPTION: The patient pushed well and brought the head to in DOA position. The 's head was allowed to deliver with contraction force and no further active pushing, with the perineum protected during this time. There was no nuchal cord. The left shoulder was anterior. The shoulders and body delivered without any difficulty, and the infant was placed on the maternal abdomen. It was vigorous and moving all extremities, and making respiratory efforts. The cord was doubly clamped by the MD and then cut. The placenta delivered spontaneously and was noted to be intact and with a 3VC. The cervix, vagina and perineum were examined and were found to have a second-degree laceration which was repaired in the usual manner with vicryl suture, including a crown stitch to rebuild the perineal body. The fundus was firm and lochia minimal immediately after delivery. [facility] Vaginal Delivery Charge Vaginal Delivery Codes: 58125 global code for the antepartum, delivery, and post-
[2025-02-17] MEDS ORDERED: HYDROCORTISONE ACETATE 25 MG SUPP PR PRN (01:38)
[2025-02-17] MEDS ORDERED: OXYTOCIN 30 UNITS/NSS 30 UNITS/500 ML BAG IV PRN (01:38)
[2025-02-17] MEDS: DIPHTHER/TETAN/PERTUS Vaccine (Tdap, Adol/Adult) 0.5mL IM ONE (01:55)
--- NOTE | 2025-02-17 02:00 | Anesthesia Procedure Note ---
Date of Service February 17, 2025 Anesthesia Post Epidural Note Vital Signs Vital Signs: Temp Pulse Resp BP Pulse Ox O2 Del Method 36.5 C 87 18 140/85 100 Room Air 02/17/25 01:30 02/17/25 01:55 02/17/25 01:30 02/17/25 01:49 02/17/25 01:55 02/16/25 19:21 Pain Intensity Bilateral Head: Pain Intensity: 0 Notes Mental Status: alert / awake / arousable and participated in evaluation Nausea / Vomiting: adequately controlled Pain: adequately controlled Airway Patency, RR, SpO2: stable & adequate BP & HR: stable & adequate Hydration State: stable & adequate Neuraxial Anesthesia: was administered and sensory block is resolving Anesthetic Complications: no major complications apparent and Pt Satisfied with anesthetic care Epidural: Removed without complications and With tip intact
[2025-02-17] MEDS: ACETAMINOPHEN 325 MG TAB PO PRN (03:12)
[2025-02-17] MEDS: IBUPROFEN 600 MG TAB PO PRN (03:13)
[2025-02-17] MEDS: SERTRALINE HCL 50 MG TABLET PO SCH (07:40)
[2025-02-17] MEDS: BENZOCAINE 20% SPRY 85 APPLN/85 GM CAN EXT PRN (07:46)
[2025-02-17] MEDS: PRENATAL VITAMIN 1 TAB PO SCH (07:46)
[2025-02-17] MEDS: DOCUSATE SODIUM 100 MG CAP PO SCH (07:46)
[2025-02-17 08:09] VITALS: RESP 16
--- NOTE | 2025-02-17 11:10 | Communication Note ---
Date of Service: February 17, 2025 visited with pt. she denies stanley or visual change. has not heard from NICU about status of baby. she is eating and bandar well, drinking fluids. valentine in place. discussed course of magnesium for seizure prophylaxis in scenario of severe preeclampsia. she is aware that is planned for 24hr after which we will allow her ambulate and during that course need to see if her bps remain stable or if there becomes need for trt. Therefore unclear after stopping mag when best timeframe to predict that she could [place] [facility] [place] we will need to be sure we are keeping her safe from complications like severe bp, stroke. She verbalized understanding. Empathy expressed for her current condition and separation from her . I spoke to nursery and then the leather goods sales representative here today about seeing if we can get a NICU update on baby to share with her and partner.
[2025-02-17] MEDS: LACTATED RINGER'S 1,000 ML IV SCH (11:15)
[2025-02-17] MEDS: LABETALOL HCL 200 MG TAB PO ONE (14:46)
[2025-02-17] MEDS: ONDANSETRON INJ 2 MG/ML 2 ML VIAL ONE (15:36)
--- NOTE | 2025-02-17 16:12 | Obstetrical Progress Note ---
Date of Service February 17, 2025 Assessment & Plan (1) care following vaginal delivery: (2) Preeclampsia: Plan pt with unfortunate drop in bp to meds to manage bp. this did happen with her iv labetalol and during epidural but was not expecting as dramatic effect with po meds. either way, reassured pt that we are watching her closely. will hold further po meds. will need to be more cautious even with po med selection given this response. curbsided anesth about agent to help support bp if i need but prefer not to use to yo-yo pt bp. if needed with plan ephedrine 50mcg and consider albumin as alt to inc intravascular volume (given preeclampsia leaky vessel disease not sure about its effect but may be worth a try). Admission and Anticipated Discharge Date Admission Date: February 15, 2025 Subjective given elevated bp opted to start labetalol po with first time dose 200mg. called due to pt low bp. she drifted from elevated bp 170s/98, to 90s/50s. given iv fluid bolus, gentle, lungs were clear and urine output was excellent. she was placed in [place]. She had felt stanley and change in hearing and that was improving. Then after time in [place] felt some chest pressure and sob and so taken out of t-angu[place] and now states she is feeling better. BP x 3 now is stable at 90s/50s pulse 75. Physical Exam Constitutional: WD/WN, vitals as above Results & Data Vital Signs (Past 12 Hours) Vital Signs Temp Pulse Pulse Resp BP BP Pulse Ox 02/17/25 16:01 75 93 02/17/25 16:00 75 99/55 L 02/17/25 15:59 75 93 02/17/25 15:56 75 98 02/17/25 15:54 74 94 02/17/25 15:51 76 99 02/17/25 15:46 75 99 02/17/25 15:45 76 98/54 L 02/17/25 15:41 76 98 02/17/25 15:36 79 99 02/17/25 15:32 72 92/55 L 02/17/25 15:31 73 95 02/17/25 15:30 74 94 02/17/25 15:26 76 93 02/17/25 15:24 75 102/54 L 02/17/25 15:21 77 93 02/17/25 15:16 78 100 02/17/25 15:15 16 02/17/25 15:15 16 02/17/25 15:15 79 124/65 02/17/25 15:11 80 99 02/17/25 15:06 82 100 02/17/25 15:01 85 100 02/17/25 14:56 88 100 02/17/25 14:51 94 H 100 02/17/25 14:46 88 100 02/17/25 14:45 88 176/95 H 02/17/25 14:41 95 H 100 02/17/25 14:36 93 H 100 02/17/25 14:31 92 H 100 02/17/25 14:26 88 100 02/17/25 14:22 86 174/91 H 02/17/25 14:21 88 100 02/17/25 14:16 98 H 100 02/17/25 14:15 16 02/17/25 14:15 98.2 F 86 16 100 02/17/25 14:01 86 92 02/17/25 14:00 85 100 02/17/25 13:58 85 168/99 H 02/17/25 13:55 92 H 100 02/17/25 13:50 82 97 02/17/25 13:46 83 94 02/17/25 13:45 80 98 02/17/25 13:40 84 99 02/17/25 13:35 83 100 02/17/25 13:30 83 99 02/17/25 13:25 86 98 02/17/25 13:20 84 98 02/17/25 13:15 16 02/17/25 13:15 16 02/17/25 13:15 86 98 02/17/25 13:10 82 99 02/17/25 13:07 91 H 91 02/17/25 13:05 85 100 02/17/25 13:00 82 100 02/17/25 12:55 85 99 02/17/25 12:50 85 99 02/17/25 12:45 81 99 02/17/25 12:40 87 98 02/17/25 12:35 84 99 02/17/25 12:30 84 100 02/17/25 12:25 87 100 02/17/25 12:22 95 H 91 02/17/25 12:20 83 100 02/17/25 12:15 16 02/17/25 12:15 87 100 02/17/25 12:10 88 97 02/17/25 12:05 95 H 100 02/17/25 12:00 82 100 02/17/25 11:55 91 H 97 02/17/25 11:50 80 98 02/17/25 11:45 81 99 02/17/25 11:40 87 92 02/17/25 11:35 82 98 02/17/25 11:30 82 97 02/17/25 11:25 89 100 02/17/25 11:20 92 H 100 02/17/25 11:15 97.9 F 16 100 02/17/25 11:15 88 100 02/17/25 11:14 96 H 93 02/17/25 11:10 81 100 02/17/25 11:05 82 96 02/17/25 11:00 79 98 02/17/25 10:55 84 98 02/17/25 10:50 90 100 02/17/25 10:45 80 99 02/17/25 10:40 89 100 02/17/25 10:35 82 98 02/17/25 10:30 89 99 02/17/25 10:25 80 98 02/17/25 10:20 84 100 02/17/25 10:15 16 02/17/25 10:15 87 97 02/17/25 10:11 91 H 92 02/17/25 10:10 89 100 02/17/25 10:05 91 H 146/98 H 100 02/17/25 10:00 83 99 02/17/25 09:55 88 100 02/17/25 09:50 83 97 02/17/25 09:45 88 99 02/17/25 09:40 83 98 02/17/25 09:35 88 100 02/17/25 09:33 92 H 84 L 02/17/25 09:30 93 H 100 02/17/25 09:25 89 99 02/17/25 09:20 88 98 02/17/25 09:15 16 02/17/25 09:15 87 99 02/17/25 09:10 88 99 02/17/25 09:05 93 H 99 02/17/25 09:00 88 100 02/17/25 08:55 92 H 99 02/17/25 08:50 92 H 99 02/17/25 08:45 90 99 02/17/25 08:40 100 02/17/25 08:40 103 H 02/17/25 08:40 103 H 140/81 02/17/25 08:35 92 H 99 02/17/25 08:30 95 H 100 02/17/25 08:25 95 H 99 02/17/25 08:20 102 H 100 02/17/25 08:15 16 02/17/25 08:15 96 H 100 02/17/25 08:10 103 H 100 02/17/25 08:05 89 100 02/17/25 08:00 91 H 100 02/17/25 07:55 94 H 98 02/17/25 07:50 97 H 96 02/17/25 07:45 101 H 97 02/17/25 07:40 92 H 100 02/17/25 07:35 95 H 100 02/17/25 07:34 94 H 91 02/17/25 07:30 100 02/17/25 07:30 92 H 02/17/25 07:30 91 H 142/85 H 02/17/25 07:25 88 100 02/17/25 07:20 87 98 02/17/25 07:17 93 H 92 02/17/25 07:15 98.2 F 91 H 16 142/85 H 100 02/17/25 07:15 93 H 100 02/17/25 07:10 90 100 02/17/25 07:05 88 100 02/17/25 07:00 91 H 100 02/17/25 06:55 88 100 02/17/25 06:50 91 H 100 02/17/25 06:45 88 100 02/17/25 06:40 88 100 02/17/25 06:35 90 100 02/17/25 06:30 100 H 100 02/17/25 06:25 97 H 100 02/17/25 06:20 100 H 100 02/17/25 06:15 102 H 100 02/17/25 06:10 99 H 100 02/17/25 06:05 107 H 100 02/17/25 06:00 98 H 100 02/17/25 05:55 97 H 98 02/17/25 05:50 98 H 100 02/17/25 05:45 94 H 100 02/17/25 05:40 96 H 100 02/17/25 05:35 94 H 100 02/17/25 05:30 93 H 100 02/17/25 05:25 96 H 100 02/17/25 05:20 93 H 100 02/17/25 05:15 85 99 02/17/25 05:10 84 99 02/17/25 05:05 94 H 100 02/17/25 05:00 18 02/17/25 05:00 98.2 F 90 18 97 02/17/25 04:55 89 98 02/17/25 04:50 88 99 02/17/25 04:45 90 99 02/17/25 04:40 87 99 02/17/25 04:35 90 100 02/17/25 04:30 89 98 02/17/25 04:25 97 H 100 02/17/25 04:20 88 100 02/17/25 04:15 88 99 02/17/25 04:10 90 100 O2 Del Method 02/17/25 16:01 02/17/25 16:00 02/17/25 15:59 02/17/25 15:56 02/17/25 15:54 02/17/25 15:51 02/17/25 15:46 02/17/25 15:45 02/17/25 15:41 02/17/25 15:36 02/17/25 15:32 02/17/25 15:31 02/17/25 15:30 02/17/25 15:26 02/17/25 15:24 02/17/25 15:21 02/17/25 15:16 02/17/25 15:15 02/17/25 15:15 02/17/25 15:15 02/17/25 15:11 02/17/25 15:06 02/17/25 15:01 02/17/25 14:56 02/17/25 14:51 02/17/25 14:46 02/17/25 14:45 02/17/25 14:41 02/17/25 14:36 02/17/25 14:31 02/17/25 14:26 02/17/25 14:22 02/17/25 14:21 02/17/25 14:16 02/17/25 14:15 02/17/25 14:15 Room Air 02/17/25 14:01 02/17/25 14:00 02/17/25 13:58 02/17/25 13:55 02/17/25 13:50 02/17/25 13:46 02/17/25 13:45 02/17/25 13:40 02/17/25 13:35 02/17/25 13:30 02/17/25 13:25 02/17/25 13:20 02/17/25 13:15 02/17/25 13:15 02/17/25 13:15 02/17/25 13:10 02/17/25 13:07 02/17/25 13:05 02/17/25 13:00 02/17/25 12:55 02/17/25 12:50 02/17/25 12:45 02/17/25 12:40 02/17/25 12:35 02/17/25 12:30 02/17/25 12:25 02/17/25 12:22 02/17/25 12:20 02/17/25 12:15 02/17/25 12:15 02/17/25 12:10 02/17/25 12:05 02/17/25 12:00 02/17/25 11:55 02/17/25 11:50 02/17/25 11:45 02/17/25 11:40 02/17/25 11:35 02/17/25 11:30 02/17/25 11:25 02/17/25 11:20 02/17/25 11:15 02/17/25 11:15 02/17/25 11:14 02/17/25 11:10 02/17/25 11:05 02/17/25 11:00 02/17/25 10:55 02/17/25 10:50 02/17/25 10:45 02/17/25 10:40 02/17/25 10:35 02/17/25 10:30 02/17/25 10:25 02/17/25 10:20 02/17/25 10:15 02/17/25 10:15 02/17/25 10:11 02/17/25 10:10 02/17/25 10:05 02/17/25 10:00 02/17/25 09:55 02/17/25 09:50 02/17/25 09:45 02/17/25 09:40 02/17/25 09:35 02/17/25 09:33 02/17/25 09:30 02/17/25 09:25 02/17/25 09:20 02/17/25 09:15 02/17/25 09:15 02/17/25 09:10 02/17/25 09:05 02/17/25 09:00 02/17/25 08:55 02/17/25 08:50 02/17/25 08:45 02/17/25 08:40 02/17/25 08:40 02/17/25 08:40 02/17/25 08:35 02/17/25 08:30 02/17/25 08:25 02/17/25 08:20 02/17/25 08:15 02/17/25 08:15 02/17/25 08:10 02/17/25 08:05 02/17/25 08:00 02/17/25 07:55 02/17/25 07:50 02/17/25 07:45 02/17/25 07:40 02/17/25 07:35 02/17/25 07:34 02/17/25 07:30 02/17/25 07:30 02/17/25 07:30 02/17/25 07:25 02/17/25 07:20 02/17/25 07:17 02/17/25 07:15 Room Air 02/17/25 07:15 02/17/25 07:10 02/17/25 07:05 02/17/25 07:00 02/17/25 06:55 02/17/25 06:50 02/17/25 06:45 02/17/25 06:40 02/17/25 06:35 02/17/25 06:30 02/17/25 06:25 02/17/25 06:20 02/17/25 06:15 02/17/25 06:10 02/17/25 06:05 02/17/25 06:00 02/17/25 05:55 02/17/25 05:50 02/17/25 05:45 02/17/25 05:40 02/17/25 05:35 02/17/25 05:30 02/17/25 05:25 02/17/25 05:20 02/17/25 05:15 02/17/25 05:10 02/17/25 05:05 02/17/25 05:00 02/17/25 05:00 02/17/25 04:55 02/17/25 04:50 02/17/25 04:45 02/17/25 04:40 02/17/25 04:35 02/17/25 04:30 02/17/25 04:25 02/17/25 04:20 02/17/25 04:15 02/17/25 04:10 PG Care Time/CCT Total # of Minutes Spent Total Time Spent with Patient: Total time spent is greater than 50% in coordination of care (as documented) at patient's floor/unit and/or counseling patient: Coding Level of Care Code None Diagnoses care following vaginal delivery Z39.2 Preeclampsia O14.90
[2025-02-17] MEDS: PHENYLEPHRINE 100MCG/ML 5ML SYR IV ONE (17:51)
[2025-02-17] MEDS ORDERED: CALCIUM CARBONATE 500 MG CHEWABLE TAB PO PRN (18:24)
[2025-02-17] MEDS: ALBUMIN 5% 250 ML IV ONE (19:22)
[2025-02-17] MEDS: FAMOTIDINE 20 MG TAB PO SCH (19:22)
[2025-02-17] MEDS ORDERED: LABETALOL HCL 200 MG TAB PO SCH (21:00)
--- NOTE | 2025-02-18 05:58 | Obstetrical Progress Note ---
Date of Service <Perla Armenta DO - Last Filed: 02/18/25 07:13> February 18, 2025 Assessment & Plan <Perla Armenta DO - Last Filed: 02/18/25 07:13> (1) care following vaginal delivery: Plan 34 yo post- day 1 s/p . Feels well today. Vital signs stable Continue post- care Encourage ambulation and Pain controlled with ibuprofen Hgb stable Potential discharge today depending on if patient is able to void and ambulate well <Lynne Wilder MD, FACOG - Last Filed: 02/18/25 07:25> (1) care following vaginal delivery: Subjective <Perla Armenta DO - Last Filed: 02/18/25 07:13> 34 yo post- day 1 s/p . Ambulation: has not tried ambulating around room Voiding: has not voided Passing Gas:: Yes Passing Stool:: No Diet Tolerance:: regular diet Lochia:: Small Feeding Type:: breast feeding Current Pain Level: 3/10 Resting comfortably this AM in NAD. Denies [place], CP, SOB, N/V/D, LE pain/swelling. Review of Systems All systems reviewed & are unremarkable except as noted in HPI & below Physical Exam <Perla Armenta DO - Last Filed: 02/18/25 07:13> General: patient resting comfortably, NAD, non-toxic in appearance, AA&O x 4, answers questions appropriately. Skin: warm, dry, intact HEENT: NC/AT, anicteric sclera, conjunctiva without injection, moist mucus membranes. Heart: +S1/S2, regular, no m/r/g Lungs: equal air entry bilaterally, no rales/rhonchi/wheezes Abd: +BS, soft, NT/ND, uterine fundus 1 FB below umbilicus Ext: warm, no clubbing/cyanosis or edema, Diamond's neg. Neuro: nonfocal, patient AA&O x 4, speech intact, no facial droop, moving all extremities on command. Results & Data <Perla Armenta DO - Last Filed: 02/18/25 07:13> Vital Signs (Past 12 Hours) Vital Signs Temp Pulse Resp BP BP Pulse Ox 02/18/25 05:03 130/80 02/18/25 03:00 36.8 C 16 117/77 02/18/25 02:06 78 92 02/18/25 02:01 78 92 02/18/25 01:56 76 94 02/18/25 01:55 76 133/78 02/18/25 01:51 77 98 02/18/25 01:46 75 93 02/18/25 01:41 75 94 02/18/25 01:40 73 126/73 02/18/25 01:36 76 93 02/18/25 01:31 78 98 02/18/25 01:26 82 97 02/18/25 01:25 75 123/73 02/18/25 01:21 79 95 02/18/25 01:16 77 96 02/18/25 01:11 73 93 02/18/25 01:10 76 123/72 02/18/25 01:06 77 95 02/18/25 01:04 78 87 L 02/18/25 01:01 82 98 02/18/25 00:56 75 94 02/18/25 00:55 83 123/67 02/18/25 00:51 83 94 02/18/25 00:46 87 97 02/18/25 00:41 78 92 02/18/25 00:40 77 115/62 02/18/25 00:36 79 93 02/18/25 00:31 79 92 02/18/25 00:26 86 L 02/18/25 00:26 79 02/18/25 00:26 79 86 L 02/18/25 00:25 77 110/62 02/18/25 00:21 78 93 02/18/25 00:18 79 88 L 02/18/25 00:16 77 92 02/18/25 00:11 78 92 02/18/25 00:10 77 111/66 02/18/25 00:06 76 90 02/18/25 00:01 78 92 02/17/25 23:56 75 90 02/17/25 23:55 74 114/65 02/17/25 23:53 78 89 L 02/17/25 23:51 77 94 02/17/25 23:46 81 94 02/17/25 23:41 74 93 02/17/25 23:40 77 122/71 02/17/25 23:36 83 94 02/17/25 23:31 77 91 02/17/25 23:26 78 93 02/17/25 23:25 79 118/70 02/17/25 23:21 82 91 02/17/25 23:16 80 93 02/17/25 23:11 84 97 02/17/25 23:10 80 126/74 02/17/25 23:06 75 94 02/17/25 23:05 37.0 C 02/17/25 23:01 80 90 02/17/25 23:00 16 02/17/25 22:56 78 92 02/17/25 22:55 78 123/70 02/17/25 22:51 78 94 02/17/25 22:46 76 95 02/17/25 22:41 76 95 02/17/25 22:40 77 118/66 02/17/25 22:36 78 94 02/17/25 22:31 83 96 02/17/25 22:26 87 96 02/17/25 22:25 82 114/59 L 02/17/25 22:21 81 96 02/17/25 22:16 85 95 02/17/25 22:11 79 99 02/17/25 22:10 83 112/67 02/17/25 22:06 81 95 02/17/25 22:01 77 95 02/17/25 22:00 14 02/17/25 21:56 78 93 02/17/25 21:55 83 118/69 02/17/25 21:51 87 96 02/17/25 21:46 82 94 02/17/25 21:41 80 93 02/17/25 21:40 81 108/61 02/17/25 21:36 81 93 02/17/25 21:31 87 97 02/17/25 21:26 83 96 02/17/25 21:25 86 114/65 02/17/25 21:21 84 93 02/17/25 21:16 84 94 02/17/25 21:11 82 95 02/17/25 21:10 83 112/63 02/17/25 21:06 79 93 02/17/25 21:01 80 93 02/17/25 21:00 16 02/17/25 20:56 85 96 02/17/25 20:55 80 109/66 02/17/25 20:51 77 92 02/17/25 20:46 78 94 02/17/25 20:41 79 91 02/17/25 20:40 77 134/75 02/17/25 20:36 80 97 02/17/25 20:31 81 99 02/17/25 20:26 79 91 02/17/25 20:25 76 107/62 02/17/25 20:21 76 91 02/17/25 20:16 77 92 02/17/25 20:11 76 95 02/17/25 20:10 78 109/68 02/17/25 20:06 81 95 02/17/25 20:01 81 91 02/17/25 20:00 14 02/17/25 19:56 74 94 02/17/25 19:51 75 94 02/17/25 19:50 76 107/61 02/17/25 19:46 76 95 02/17/25 19:45 74 109/64 02/17/25 19:41 76 93 02/17/25 19:40 75 115/68 02/17/25 19:36 79 96 02/17/25 19:35 75 109/62 02/17/25 19:31 73 96 02/17/25 19:30 76 110/62 02/17/25 19:26 72 96 02/17/25 19:21 75 93 02/17/25 19:20 75 104/59 L 02/17/25 19:16 75 96 02/17/25 19:11 77 95 02/17/25 19:08 37.1 C 16 02/17/25 19:06 78 99 02/17/25 19:05 16 02/17/25 19:05 80 113/64 02/17/25 19:01 79 95 02/17/25 18:56 78 98 02/17/25 18:51 78 96 02/17/25 18:50 76 99/61 L 02/17/25 18:46 73 92 02/17/25 18:41 80 98 02/17/25 18:37 76 86 L 02/17/25 18:36 75 96 02/17/25 18:35 76 119/68 02/17/25 18:31 76 94 02/17/25 18:26 74 92 02/17/25 18:21 74 94 02/17/25 18:20 78 99/54 L 02/17/25 18:16 74 94 02/17/25 18:11 75 94 02/17/25 18:06 76 96 02/17/25 18:05 16 02/17/25 18:05 75 108/60 02/17/25 18:01 75 97 02/17/25 17:59 74 110/61 02/17/25 17:56 74 98 Laboratory Results OB Labs: Hgb 10.6 g/dl (12.0-16.0) L 02/12/25 Hct 31.6 % (37.0-47.0) L 02/12/25 MCV 86.1 fL (80.0-100.0) 02/12/25 Plt Count 304 K/uL (130-400) 02/12/25 OB Optional Labs: No Data to Display Labs Reviewed: Initial OB Labs 08/25/24 Blood Type & RH Antibody Screen HCT/HGB 40.3/13.6 Platelets 298 Hep C IgG 13yrs+ Old non reactive Pap Test Chlamydia not detected Gonorrhea not detected Rubella immune RPR non reactive Urine Culture/Screen >100,000 mixed timothy HBsAg non reactive HIV non reactive MCV 91.7 Ultrasound 24-28 Week OB Labs 01/03/25 HCT/HGB 34.1/11.3 Diabetes Screen (1hr) 3HR GTT (if screen abnormal) [id number] Antibody Screen Urine Culture/Screen Supervising Physician <Lynne Wilder MD, FACOG - Last Filed: 02/18/25 07:25> Co-Signing Physician Notes Resident Physician Supervision Note: I was present with Dr. Armenta during the history and exam. I discussed the case with the resident and agree with the findings and plan as documented in the note. Any exceptions or clarifications are listed here: doing well this am, has been off mag and in her pp room. eating, just voided, ambulating. no bleeding issues. baby in [place] [facility] [place]. spirits are good, smiling. cor rrr, lungs ctab, ext nt calves. no edema abd soft ff 2 down nt. ppd #1 s/p and pp mag x 24hr. doing well. bps are ok. very sensitive to bp meds noted and will be passed along. ok for dc home. instructions reviewed. will need bp check on saturday. aware to call if still at [facility] [place] to let ob nurse know how we can get that accomplished. aware of s/sx of worsening disease and what to call with or present to ER with. Does desire early dc today to get to see baby at [facility] [place]. Will just want to see a couple of am bps but otherwise ok to go. Documented By: Lynne Wilder MD, FACOG Resident Activity Tracking <Perla Armenta DO - Last Filed: 02/18/25 07:13> Resident Involvement: Resident Care Provided Care Provided: OB Delivery
[2025-02-18 07:09] LABS: Hematocrit (blood only) 23.1 % (37.0-47.0); Hemoglobin 7.8 g/dl (12.0-16.0); Mean Corpuscular Hemoglobin 29.4 pg (25.0-34.0); Mean Corpuscular Volume 87.2 fL (80.0-100.0); Platelet Count 278 K/uL (130-400); RDW Standard Deviation 44.4 fL (36.4-46.3); Red Blood Count 2.65 M/uL (4.20-5.40); White Blood Count 16.35 K/ul (4.8-10.8)
[2025-02-18 07:33] VITALS: PULSE 77; TEMP 97.9; O2SAT 100
[2025-02-18 09:24] VITALS: BP 130/85
== END 2025-02-18 11:00 | disposition home or self-care (01) | DRG 807 ==
LOC: OPB 15:13 → 4S1 15:16 → 4E2 02-18 03:19